=== PATIENT | female | born 1980 | race Caucasian/White ===

== ENCOUNTER 2020-07-10 12:27 | Emergency (ER) | payer OTHER ==
[~2020-07-10] VITALS: Ht 160 cm; Wt 90.7 kg
[~2020-07-10 12:27] MED LIST: IBUP-2213
[2020-07-10 12:38] VITALS: BP 124/74
[2020-07-10 13:34] VITALS: BP 124/74
== END 2020-07-10 13:35 | disposition home or self-care (01) ==
LOC: MED 12:27
DX: S13.4XXA Sprain of ligaments of cervical spine, initial encounter (principal); S36.32XA Contusion of stomach, initial encounter; R07.9 Chest pain, unspecified; Z79.899 Other long term (current) drug therapy; V89.2XXA Person injured in unspecified motor-vehicle accident, traffic, initial encounter; Y93.89 Activity, other specified; Y92.89 Other specified places as the place of occurrence of the external cause; Y99.8 Other external cause status
CPT/HCPCS: 99282